=== PATIENT | female | born 1995 | race Caucasian/White ===

== ENCOUNTER 2023-12-03 12:38 | Emergency (ER) | payer SELFPAY ==
[~2023-12-03] VITALS: Ht 182.9 cm; Wt 124.6 kg
[2023-12-03 12:46] VITALS: BP 142/92; PULSE 88; TEMP 98.7; O2SAT 98
[2023-12-03 13:48] VITALS: RESP 18
[2023-12-03] MEDS: oxyCODONE IR 5mg (immed. release) tablet PO ONE (13:48)
[2023-12-03] MEDS ORDERED: ACET10DR3 LEFT EAR (13:53)
[2023-12-03] MEDS ORDERED: OXYC-658 PO (13:53)
== END 2023-12-03 14:14 | disposition home or self-care (01) ==
LOC: ER 12:39
DX: G89.29 Other chronic pain (principal); H92.02 Otalgia, left ear; Z79.899 Other long term (current) drug therapy
CPT/HCPCS: 87070; 87077; 87186; 99283